=== PATIENT | female | born 1985 | race Caucasian/White ===

== ENCOUNTER 2017-03-21 02:24 | Emergency (ER) | payer OTHER ==
--- NOTE | ~2017-03-21 | CR142 ---
[facility] A Service of [facility] & [facility] RADIOLOGY TEXT RESULTS PATIENT: MALATHI KEENE LOCATION: [facility] : 83 UNIT #: [id number] AGE: [address]: Marly Cordova MD SEX: F ORDER DR: [id number] [facility] [address] [facility] [address] [place], [place] [address] [id number] E MR#: [id number] #: [id number] NAME: MALATHI KEENE : 1985 SEX: F STUDY DATE/TIME: 03/21/2017 2:59 UNIT: [facility] ROOM: STUDY DESCRIPTION: CR Hand Min 3 Views Rt Attending Physician: Marly Cordova M.D. Ordering Physician: Edouard Mcmullen M.D. Primary Care Physician: Primary Care Physician No MEDICAL IMAGING REPORT This report is preliminary unless electronic signature is present EXAM Right hand series, 03/21/2017 HISTORY 31-year-old female in the ED complaining of right hand pain, soft tissue swelling and bruising after injury. Object fell on hand 2 days ago. TECHNIQUE Three-view right hand series. FINDINGS No fracture, dislocation or other osseous abnormality. Soft tissue swelling is noted over the dorsal aspect of the hand. IMPRESSION Dorsal soft tissue swelling. Right hand series is otherwise negative. Dictated by... Ronnell Whyte M.D. THIS IS AN ELECTRONICALLY VERIFIED REPORT Ronnell Whyte M.D. at 03/21/2017 6:06 AM BRENDA/christina TD: 03/21/2017 04:32 JOB #: [id number] MEDICAL IMAGING REPORT Page 1 of 1 COPY
== END 2017-03-21 04:22 | disposition home or self-care (01) ==
LOC: CED 02:24
DX: S60.221A Contusion of right hand, initial encounter (principal); Z23 Encounter for immunization; F17.210 Nicotine dependence, cigarettes, uncomplicated; W20.8XXA Other cause of strike by thrown, projected or falling object, initial encounter; Y92.009 Unspecified place in unspecified non-institutional (private) residence as the place of occurrence of the external cause
CPT/HCPCS: 73130; 84703; 90471; 90715; 99283